=== PATIENT | male | born 1970 | race Caucasian/White ===

== ENCOUNTER → 2017-04-14 | Outpatient (CLI) | payer BC ==
--- NOTE | 2017-04-14 14:32 | XR ---
Right foot HISTORY: Trauma and pain 3 views of the right foot Soft tissue swelling is suspected. Mild degenerative changes are present, there is joint space loss a t the first metatarsophalangeal and possibly interphalangeal joint. Alignment and bone mineralization are maintained. IMPRESSION: No acute fracture or dislocation.
== END ==
LOC: RADXRYALE 13:28
PROVIDERS: ATTEND Family Medicine
DX: S97.111A Crushing injury of right great toe, initial encounter (principal)

== ENCOUNTER 2017-10-06 07:13 | Emergency (ER) | payer BC ==
[2017-10-06 07:17] VITALS: TEMP 98
[2017-10-06] MEDS ORDERED: ONDANSETRON 4 MG/2 ML VIAL IVP STA (07:26)
--- NOTE | 2017-10-06 07:27 | ED ---
General Adult HPI - General Chief complaint: Abdominal Pain Stated complaint: rt sided abd pain Time Seen by Provider: 10/06/17 07:18 Source: patient, RN notes reviewed Mode of arrival: ambulatory Limitations: no limitations - History of Present Illness Initial comments: Patient is a 47-year-old male presents into the emergency room today with a chief complaint of right-sided abdominal pain over the last 3 days. Patient states started Thursday afternoon after eating. Patient admits to feeling somewhat nauseous. Patient mitts diarrhea. Last 2 days. Patient missed pain right side of the abdomen. Denies any radiation. States currently at 5/10. States does become more intense at times. Denies any other complaints or symptoms. Patient denies any recent fever, chills, shortness of breath, chest pain, back pain, numbness or tingling, dysuria or hematuria, constipation, headaches or visual changes, or any other complaints. - Related Data Home Medications Medication Instructions Recorded Confirmed Albuterol Inhaler [Ventolin Hfa 2 puff INHALATION RT-Q6H PRN 10/06/17 10/06/17 Inhaler] Cyclobenzaprine [Flexeril] 10 mg PO TID PRN 10/06/17 10/06/17 Lisinopril [Zestril] 10 mg PO DAILY 10/06/17 10/06/17 Naproxen [Naprosyn] 500 mg PO Q12HR PRN 10/06/17 10/06/17 Previous Rx's Medication Instructions Recorded Ciprofloxacin HCl [Cipro] 500 mg PO Q12HR #14 day 10/06/17 Cyclobenzaprine [Flexeril] 10 mg PO TID #20 tab 10/06/17 Naproxen [Naprosyn] 500 mg PO BID #30 tablet 10/06/17 metroNIDAZOLE [Flagyl] 500 mg PO TID #21 tab 10/06/17 Allergies Allergy/AdvReac Type Severity Reaction Status Date / Time amlodipine [From Norvasc] Allergy Unknown Verified 10/06/17 08:46 ampicillin Allergy Unknown Verified 10/06/17 08:46 hydrocodone [From Vicodin] Allergy Unknown Verified 10/06/17 08:46 Review of Systems ROS Statement: Those systems with pertinent positive or pertinent negative responses have been documented in the HPI. ROS Other: All systems not noted in ROS Statement are negative. Past Medical History Past Medical History: Asthma, Hypertension History of Any Multi-Drug Resistant Organisms: None Reported Past Surgical History: Back Surgery, Orthopedic Surgery Past Psychological History: No Psychological Hx Reported Smoking Status: Never smoker Past Alcohol Use History: Occasional Past Drug Use History: None Reported General Exam - General Exam Comments Initial Comments: General: The patient is awake and alert, in no distress, and does not appear acutely ill. Eye: Pupils are equal, round and reactive to light, extra-ocular movements are intact. No nystagmus. There is normal conjunctiva bilaterally. No signs of icterus. Ears, nose, mouth and throat: There are moist mucous membranes and no oral lesions. Neck: The neck is supple, there is no tenderness or JVD. Cardiovascular: There is a regular rate and rhythm. No murmur, rub or gallop is appreciated. Respiratory: Lungs are clear to auscultation, respirations are non-labored, breath sounds are equal. No wheezes, stridor, rales, or rhonchi. Gastrointestinal: Abdomen soft on palpation. Mild tenderness on the right side of the abdomen greatest in right lower quadrant. No rebound tenderness. No guarding. Musculoskeletal: Normal ROM, no tenderness. Strength 5/5. Sensation intact. Pulses equal bilaterally 2+. Neurological: A&O x 3. CN II-XII intact, There are no obvious motor or sensory deficits. Coordination appears grossly intact. Speech is normal. Skin: Skin is warm and dry and no rashes or lesions are noted. Psychiatric: Cooperative, appropriate mood & affect, normal judgment. Limitations: no limitations Course Vital Signs 10/06/17 10/06/17 07:15 09:18 Temperature 98.0 F Pulse Rate 73 68 Respiratory 20 16 Rate Blood Pressure 164/97 149/91 O2 Sat by Pulse 98 95 Oximetry Medical Decision Making - Medical Decision Making Patient's labs been reviewed. His CT of the abdomen and pelvis shows evidence for epiploic appendagitis. Results were discussed with patient. He will be covered with antibiotics of Cipro Flagyl. He is advised follow-up the family doctor over the next 2 days. Advised to continue with anti-inflammatories. Requesting refill for his naproxen also takes Flexeril is requesting a refill for that. - Lab Data Result diagrams: 10/06/17 07:40 10/06/17 07:40 Lab Results 10/06/17 10/06/17 10/06/17 Range/Units 07:40 07:40 07:40 WBC 8.8 (3.8-10.6) k/uL RBC 5.21 (4.30-5.90) m/uL Hgb 15.1 (13.0-17.5) gm/dL Hct 44.6 (39.0-53.0) % MCV 85.7 (80.0-100.0) fL MCH 28.9 (25.0-35.0) pg MCHC 33.8 (31.0-37.0) g/dL RDW 12.7 (11.5-15.5) % Plt Count 346 (150-450) k/uL Neutrophils % 63 % Lymphocytes % 23 % Monocytes % 9 % Eosinophils % 3 % Basophils % 1 % Neutrophils # 5.5 (1.3-7.7) k/uL Lymphocytes # 2.0 (1.0-4.8) k/uL Monocytes # 0.8 (0-1.0) k/uL Eosinophils # 0.3 (0-0.7) k/uL Basophils # 0.1 (0-0.2) k/uL Sodium 141 (137-145) mmol/L Potassium 4.8 (3.5-5.1) mmol/L Chloride 104 (98-107) mmol/L Carbon Dioxide 26 (22-30) mmol/L Anion Gap 11 mmol/L BUN 27 H (9-20) mg/dL Creatinine 0.88 (0.66-1.25) mg/dL Est GFR (CKD-EPI)AfAm >90 (>60 ml/min/1.73 sqM) Est GFR (CKD-EPI)NonAf >90 (>60 ml/min/1.73 sqM) Glucose 99 (74-99) mg/dL Calcium 9.5 (8.4-10.2) mg/dL Total Bilirubin 0.7 (0.2-1.3) mg/dL AST 27 (17-59) U/L ALT 49 (21-72) U/L Alkaline Phosphatase 73 (38-126) U/L Total Protein 7.1 (6.3-8.2) g/dL Albumin 4.2 (3.5-5.0) g/dL Amylase 44 (30-110) U/L Lipase 75 (23-300) U/L Urine Color Yellow Urine Appearance Clear (Clear) Urine pH 6.0 (5.0-8.0) Ur Specific [place] 1.025 (1.001-1.035) Urine Protein Trace H (Negative) Urine Glucose (UA) Negative (Negative) Urine Ketones Negative (Negative) Urine Blood Negative (Negative) Urine Nitrite Negative (Negative) Urine Bilirubin Negative (Negative) Urine Urobilinogen <2.0 (<2.0) mg/dL Ur Leukocyte Esterase Negative (Negative) Disposition Clinical Impression: Epiploic appendagitis Disposition: HOME SELF-CARE Condition: Good Instructions: Abdominal Pain (ED) Additional Instructions: Please use medication as discussed. Please follow-up with family doctor in the next 2 days of symptoms have not improved. Please return to emergency room if the symptoms increase or worsen or for any other concerns. Prescriptions: Ciprofloxacin HCl [Cipro] 500 mg PO Q12HR #14 day Cyclobenzaprine [Flexeril] 10 mg PO TID #20 tab metroNIDAZOLE [Flagyl] 500 mg PO TID #21 tab Naproxen [Naprosyn] 500 mg PO BID #30 tablet Referrals: Kevin Forde DO [Primary Care Provider] - 1-2 days Time of Disposition: 10:45
[2017-10-06 07:54] LABS: Appearance,Urine Clear (Clear); Bilirubin,Urine Negative (Negative); Blood,Urine Negative (Negative); Color,Urine Yellow; Glucose,Urine (UA) Negative (Negative); Ketones,Urine Negative (Negative); Leukocyte Esterase,Urine Negative (Negative); Nitrite,Urine Negative (Negative); Protein,Urine Trace (Negative); Specific Gravity,Urine 1.025 (1.001-1.035); Urobilinogen,Urine <2.0 mg/dL (<2.0)
[2017-10-06 08:03] LABS: ALT 49 U/L (21-72); AST 27 U/L (17-59); Albumin 4.2 g/dL (3.5-5.0); Alkaline Phosphatase 73 U/L (38-126); Amylase 44 U/L (30-110); Anion Gap 11 mmol/L; Blood Urea Nitrogen 27 mg/dL (9-20); Calcium 9.5 mg/dL (8.4-10.2); Carbon Dioxide 26 mmol/L (22-30); Chloride 104 mmol/L (98-107); Glucose 99 mg/dL (74-99); Lipase 75 U/L (23-300); Potassium 4.8 mmol/L (3.5-5.1); Sodium 141 mmol/L (137-145); Total Bilirubin 0.7 mg/dL (0.2-1.3); Total Protein 7.1 g/dL (6.3-8.2)
[2017-10-06 08:35] LABS: Basophils # (A) 0.1 k/uL (0-0.2); Basophils % (A) 1 %; Eosinophils # (A) 0.3 k/uL (0-0.7); Eosinophils % (A) 3 %; HCT 44.6 % (39.0-53.0); HGB 15.1 gm/dL (13.0-17.5); Lymphocytes % (A) 23 %; MCH 28.9 pg (25.0-35.0); MCHC 33.8 g/dL (31.0-37.0); MCV 85.7 fL (80.0-100.0); Mean Platelet Volume 6.8; Monocytes # (A) 0.8 k/uL (0-1.0); Monocytes % (A) 9 %; Neutrophils # (A) 5.5 k/uL (1.3-7.7); Neutrophils % (A) 63 %; Platelet Count 346 k/uL (150-450); RBC 5.21 m/uL (4.30-5.90); RDW 12.7 % (11.5-15.5); WBC 8.8 k/uL (3.8-10.6)
--- NOTE | 2017-10-06 09:08 | US ---
EXAMINATION TYPE: US abdomen limited DATE OF EXAM: 10/06/2017 COMPARISON: NONE CLINICAL HISTORY: Pain. RUQ pain, NPO, no surgeries EXAM MEASUREMENTS: Liver Length: 19.4 cm Gallbladder Wall: 0.3 cm CHD: 0.4 cm Right Kidney: 10.9 x 5.4 x 4.7 cm Limited exam due to overlying bowel gas Pancreas: Obscured by bowel gas Liver: Increased attenuation, decreased visualization of vessels suggestive of fatty infiltrate Gallbladder: Fold seen, wnl Evidence for sonographic Whittington's sign: neg CBD: Obscured by overlying bowel gas CHD: wnl Right Kidney: wnl, scanned through ribs due to overlying bowel gas IMPRESSION: 1. Hepatic steatosis.
--- NOTE | 2017-10-06 09:08 | US ---
EXAMINATION TYPE: US abdomen APPY DATE OF EXAM: 10/06/2017 COMPARISON: NONE CLINICAL HISTORY: Pain. No fever, RUQ pain APPENDIX AP Diameter (normal < 6mm): Not seen Is the appendix seen in its entirety from the proximal cecum to distal end: Compressible tubular str ucture not seen in the RLQ Is there inflammatory changes or free fluid present: no Appendix not visualized IMPRESSION: Nonvisualization of the appendix. Correlate clinically.
[2017-10-06 09:18] VITALS: RESP 16
[2017-10-06] MEDS ORDERED: RX INFO: IV CONTRAST WAS GIVEN 1 EACH MISC MISCELLANE PRN (09:35)
--- NOTE | 2017-10-06 10:26 | CT ---
EXAMINATION TYPE: CT abdomen pelvis w con DATE OF EXAM: 10/06/2017 COMPARISON: NONE HISTORY: Patient complains of RUQ pain, diarrhea, and constipation. CT DLP: 1287.6 mGycm CONTRAST: CT scan of the abdomen and pelvis is performed without Oral Contrast and with IV Contrast, patient in jected with 100 mL of Isovue 300. FINDINGS: LUNG BASES-: No visible nodule. No infiltrate. LIVER/GB: No calcified gallstones. No space occupying hepatic lesion. Biliary tree is of normal ca liber. Mild hepatic steatosis. PANCREAS: No inflammation. No distinct mass. SPLEEN: No splenic enlargement. No lesion seen. ADRENALS: No nodule. No thickening. KIDNEYS/BLADDER: No hydronephrosis. No nephrolithiasis. No distinct renal mass. Urinary bladder g rossly unremarkable. BOWEL: Normal appendix. Fat density ovoid structure adjacent to the ascending colon laterally with bay rrounding inflammatory fat stranding and thickening of the adjacent peritoneum. The findings are felt to reflect epiploic appendagitis with diverticulitis being less likely although not entirely exclude d. No evidence for perforation or abscess. GENITAL ORGANS: No gross abnormality. LYMPH NODES: No greater than 1cm abdominal or pelvic lymph nodes are appreciated. AORTA: No significant abnormality. OSSEOUS STRUCTURES: No significant abnormality is seen. OTHER: No significant additional abnormality is seen. IMPRESSION: 1. Probable epiploic appendagitis adjacent to the ascending colon. See above. 2. Normal appendix. 3. Hepatic steatosis.
[2017-10-06 11:02] VITALS: BP 140/86; PULSE 70
== END 2017-10-06 11:04 | disposition home or self-care (01) ==
LOC: EC 07:13
DX: K63.89 Other specified diseases of intestine (principal); I10 Essential (primary) hypertension; Z79.899 Other long term (current) drug therapy; Z88.1 Allergy status to other antibiotic agents; Z88.5 Allergy status to narcotic agent; Z88.8 Allergy status to other drugs, medicaments and biological substances
CPT/HCPCS: 36415; 80053; 82150; 83690; 85025; 81003; 76705; 74177; 99284; 96374; J2405; Q9967

== ENCOUNTER → 2019-05-18 | Outpatient (CLI) | payer BC ==
--- NOTE | 2019-05-18 16:04 | XR ---
EXAMINATION TYPE: XR chest 2V DATE OF EXAM: 05/18/2019 COMPARISON: NONE HISTORY: Shortness of breath and cough TECHNIQUE: Frontal and lateral views of the chest are obtained. FINDINGS: There is no focal air space opacity, pleural effusion, or pneumothorax seen. The cardiac silhouette size is within normal limits. The osseous structures are intact. There is bronchial wall thickening. IMPRESSION: Correlate for bronchitis, reactive airways disease, follow-up as indicated
== END | disposition home or self-care (01) ==
LOC: RADXRYALE 15:29
PROVIDERS: ATTEND Physician Assistant
DX: R06.02 Shortness of breath (principal); R05 Cough
CPT/HCPCS: 71046

== ENCOUNTER 2021-02-27 08:57 | Day surgery (SDC) | payer BC ==
[2021-02-26 09:13] VITALS: BMI 30.9
[~2021-02-27 08:57] MED LIST: LACTATED RINGERS 1,000 ML IV SCH; LIDOCAINE 1% (10MG/ML) FOR IV START INTRADERMA PRN
[2021-02-27 09:20] VITALS: TEMP 96.9
[2021-02-27] MEDS ORDERED: PROPOFOL 10 MG/ML 20 ML VIAL IV ONE (11:03)
--- NOTE | 2021-02-27 11:17 | P.PCN ---
Date of Procedure: 02/27/21 Procedure(s) Performed: BRIEF HISTORY: Patient is a 51-year-old pleasant male scheduled for an elective colonoscopy as a part of screening for colon rectal neoplasia. PROCEDURE PERFORMED: Colonoscopy. PREOPERATIVE DIAGNOSIS: Screening for colon cancer. IV sedation per Anesthesia. PROCEDURE: After informed consent was obtained, the patient, was brought into the endoscopy unit. IV sedation was administered by Anesthesia under continuous monitoring. Digital rectal examination was normal. Initially the Olympus CF-160 flexible video colonoscope was then inserted in the rectum, gradually advanced into the cecum without any difficulty. Careful examination was performed as the scope was gradually being withdrawn. Ileocecal valve and the appendiceal orifice were visualized and appeared normal. Prep was fair. Mucosa of the cecum, ascending colon, transverse colon, descending colon, sigmoid colon, and rectum appeared normal. Retroflexion was performed in the rectum and no lesions were seen. The patient tolerated the procedure well. IMPRESSION: Normal-appearing colon from rectum to cecum with no evidence of colorectal neoplasia . RECOMMENDATIONS: Findings of this examination were discussed with the patient as well as her family.. He was advised to have a repeat screening colonoscopy in 10 years.
[2021-02-27 11:29] VITALS: RESP 16
[2021-02-27 11:53] VITALS: BP 141/88; PULSE 68
== END 2021-02-27 12:06 | disposition home or self-care (01) ==
LOC: ORWHC2ENDO 08:57
PROVIDERS: ATTEND Internal Medicine Gastroenterology
DX: Z12.11 Encounter for screening for malignant neoplasm of colon (principal); I10 Essential (primary) hypertension; E78.5 Hyperlipidemia, unspecified; J45.990 Exercise induced bronchospasm
CPT/HCPCS: 45378; J2704

== ENCOUNTER → 2021-04-24 | Outpatient (CLI) | payer BC ==
--- NOTE | 2021-04-25 11:31 | XR ---
EXAMINATION TYPE: XR chest 2V DATE OF EXAM: 04/24/2021 COMPARISON: Chest x-ray 05/18/2019, patient's abnormal chest x-rays are not available for correlation HISTORY: Cough, abnormal chest x-ray 1 month prior TECHNIQUE: Frontal and lateral views of the chest are obtained. FINDINGS: There is no focal air space opacity, pleural effusion, or pneumothorax seen. The cardiac silhouette size is within normal limits. The osseous structures are intact, there is thoracic spondyl osis. IMPRESSION: No acute cardiopulmonary process.
== END | disposition home or self-care (01) ==
LOC: RADXRYALE 16:06
PROVIDERS: ATTEND Physician Assistant Medical
DX: R05.9 Cough, unspecified (principal)
CPT/HCPCS: 71046

== ENCOUNTER → 2025-02-10 | Outpatient (CLI) | payer OTHER ==
--- NOTE | 2025-02-10 14:23 | XR ---
EXAMINATION TYPE: XR shoulder complete RT, XR clavicle RT, XR humerus RT DATE OF EXAM: 02/10/2025 2:14 PM INDICATION: Patient age:Male; 54 years old; Reason for study: R52 pain; pain COMPARISON: Chest radiograph 04/24/2021 TECHNIQUE: The right shoulder was examined in AP, internally rotated and scapular Y projections. Th e right clavicle was evaluated in 2 projections. The right humerus is evaluated in frontal and latera l projections. FINDINGS: No evidence of acute osseous pathology, joint dislocation, or soft tissue swelling. The remaining por tions of the visualized chest are unremarkable. No osseous erosions. No radiopaque foreign body. No p eriosteal reaction. IMPRESSION: No acute osseous pathology. [facility], , 02/10/2025 2:21 PM
== END | disposition home or self-care (01) ==
LOC: RADXRMAIN 13:34
PROVIDERS: ATTEND Emergency Medicine
DX: S40.011A Contusion of right shoulder, initial encounter (principal); X58.XXXA Exposure to other specified factors, initial encounter